=== PATIENT | male | born 1960 | race Caucasian/White ===

== ENCOUNTER 2020-09-30 12:51 | Emergency (ER) | payer OTHER ==
[2020-09-30 13:00] VITALS: BP 156/91; PULSE 92; TEMP 97.8; BMI 28.3
[2020-09-30] MEDS: DIPHTH,PERTUSS(ACELL),TET 0.5 ML DISP.SYRIN IM ONE ×2 (13:31→13:35)
[2020-09-30] MEDS ORDERED: DIPHTH,PERTUSS(ACELL),TET 0.5 ML DISP.SYRIN IM ONE (13:32)
== END 2020-09-30 14:13 | disposition home or self-care (01) ==
LOC: JERFT 12:51
PROC: 0HQFXZZ Repair Right Hand Skin, External Approach (ICD-10-PCS; principal; 2020-09-30)
DX: S61.411A Laceration without foreign body of right hand, initial encounter (principal)
CPT/HCPCS: 90715; 99282-25

== ENCOUNTER 2020-10-12 13:19 | Emergency (ER) | payer OTHER ==
[2020-10-12 13:43] VITALS: BP 131/78; PULSE 77; TEMP 97.2; BMI 28.2
== END 2020-10-12 14:22 | disposition home or self-care (01) ==
LOC: JERFT 13:19
DX: Z48.02 Encounter for removal of sutures (principal)
CPT/HCPCS: 99281-25